=== PATIENT | female | born 1955 | race Asian ===

== ENCOUNTER 2018-07-19 17:08 | Emergency (ER) | payer SELFPAY ==
[~2018-07-19] VITALS: Ht 147.3 cm; Wt 56.7 kg
[~2018-07-19 17:08] MED LIST: CETI5SOL PO; GUAI600T47 PO; LISI-334 PO; PROTANDIM; [UNRECOGNIZED DRUG - OTHER]
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
[2018-07-19] MEDS ORDERED: tiZANidine 4 MG TABLET. PO ONE (17:30)
[2018-07-19] MEDS ORDERED: KETOROLAC 60 MG/2 ML VIAL. IM ONE (17:30)
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
[2018-07-19 19:13] VITALS: BP 121/62
[2018-07-19] MEDS ORDERED: HYDR-3164 PO (19:15)
[2018-07-19] MEDS ORDERED: ORPH100T PO (19:15)
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
== END 2018-07-19 19:51 | disposition home or self-care (01) ==
LOC: ER 17:08
DX: S39.012A Strain of muscle, fascia and tendon of lower back, initial encounter (principal); S29.012A Strain of muscle and tendon of back wall of thorax, initial encounter; S16.1XXA Strain of muscle, fascia and tendon at neck level, initial encounter; R07.81 Pleurodynia; R51 Headache; V43.62XA Car passenger injured in collision with other type car in traffic accident, initial encounter; Y93.89 Activity, other specified; Y92.410 Unspecified street and highway as the place of occurrence of the external cause; Y99.8 Other external cause status
CPT/HCPCS: 70450; 71101; 72125; 72128; 72131; 96372; 99284; J1885